=== PATIENT | male | born 1980 | race Caucasian/White ===

== ENCOUNTER 2020-04-08 11:38 | Emergency (ER) | payer OTHER ==
[~2020-04-08] VITALS: Ht 177.8 cm; Wt 75.8 kg
[2020-04-08] MEDS ORDERED: KEFLEX500 M1 PO (14:06)
[2020-04-08 14:43] VITALS: BP 125/70
== END 2020-04-08 14:44 | disposition home or self-care (01) ==
LOC: M.ERS 11:38
DX: S61.011A Laceration without foreign body of right thumb without damage to nail, initial encounter (principal); X58.XXXA Exposure to other specified factors, initial encounter; Y93.89 Activity, other specified; Y92.89 Other specified places as the place of occurrence of the external cause; Y99.8 Other external cause status